=== PATIENT | male | born 1950 | race Caucasian/White ===

== ENCOUNTER 2020-02-03 23:34 | Observation (INO) ==
[2020-02-04] MEDS ORDERED: Aspirin 81 MG TAB.CHEW PO ONE (00:03)
[2020-02-04 00:22] LABS: Prothrombin Time 11.4 Seconds (9.4-12.1)
[2020-02-04 00:23] LABS: Basophils # 0.1 K/mcL (0.0-0.2); Basophils % 0.8 %; Eosinophils # 0.3 K/mcL (0.0-0.6); Eosinophils % 3.3 %; Hematocrit 39.7 % (37.5-50.1); Hemoglobin 13.9 g/dL (12.9-16.9); Immature Granulocytes % 0.2 % (0-4); Lymphocytes # 2.6 K/mcL (0.6-4.6); Mean Corpuscular Hemoglobin 30.8 pg (28.0-33.3); Mean Corpuscular Volume 87.8 fL (83.0-100.0); Monocytes # 0.9 K/mcL (0.0-1.3); Monocytes % 8.3 %; Neutrophils # 6.4 K/mcL (1.6-8.9); Platelet Count 265 K/mcL (140-400); Red Blood Count 4.52 M/mcL (4.19-5.50); Red Cell Distribution Width 12.8 % (11.5-14.5); Segmented Neutrophils % 62.4 %; White Blood Count 10.3 K/mcL (4.3-11.1)
[2020-02-04 00:24] LABS: Activated Partial Thrombo Time 56.6 Seconds (26.0-36.0)
[2020-02-04 00:31] LABS: BUN/Creatinine Ratio 15 (6-26); Blood Urea Nitrogen 14 mg/dL (8-23); Calcium 8.9 mg/dL (8.6-10.3); Carbon Dioxide 25 mEq/L (23-29); Chloride 105 mEq/L (98-107); Glucose 163 mg/dL (70-105); Osmolality,Calculated 292 (280-300); Potassium 3.1 mEq/L (3.5-5.1); Sodium 139 mEq/L (136-145); eGFR For African Americans > 60 (> 60); eGFR For Non-African Americans > 60 (> 60)
[2020-02-04 00:32] LABS: Troponin I < 0.03 ng/mL (< 0.04)
[2020-02-04] MEDS: Nitroglycerin 0.4 MG TAB.SUBL SL PRN ×3 (00:39→01:23)
[2020-02-04] MEDS ORDERED: Isovue-370 500 ML BOTTLE IVP ONE (00:46)
[2020-02-04] MEDS ORDERED: *HR* FentaNYL (PF) 100 MCG/2 ML VIAL IVP ONE (01:55)
[2020-02-04 04:17] LABS: Adenovirus Not Detected (Not Detect); Bordetella Pertussis Not Detected (Not Detect); Chlamydophila pneumoniae Not Detected (Not Detect); Coronavirus 229E Not Detected (Not Detect); Coronavirus HKU1 Not Detected (Not Detect); Coronavirus NL63 Not Detected (Not Detect); Coronavirus OC43 Not Detected (Not Detect); Human Metapneumovirus Not Detected (Not Detect); Human Rhinovirus/Enterovirus Not Detected (Not Detect); Influenza A Subtype 2009 H1 Not Detected (Not Detect); Influenza B Not Detected (Not Detect); Mycoplasma pneumoniae Not Detected (Not Detect); Parainfluenza Virus 1 Not Detected (Not Detect); Parainfluenza Virus 2 Not Detected (Not Detect); Parainfluenza Virus 3 Not Detected (Not Detect); Parainfluenza Virus 4 Not Detected (Not Detect); Respiratory Syncytial Virus Not Detected (Not Detect)
[2020-02-04] MEDS ORDERED: Perflutren Lipid Microsphere 1.3 ML in 0.9 % Sodium Chloride 8.7 ML IVP PRN (04:41)
[2020-02-04 04:58] LABS: Lipase 42 Units/L (11-82)
[2020-02-04] MEDS ORDERED: *HR* OxyCODONE Immed Rel 5 MG TABLET PO ONE (05:43)
[2020-02-04] MEDS ORDERED: *HR* HYDROcodone/Acet 5/325 mg TABLET PO PRN (05:53)
[2020-02-04] MEDS ORDERED: Naloxone 0.4 MG/ML INJ IVP PRN (05:53)
[2020-02-04] MEDS ORDERED: Acetaminophen 325 MG TABLET PO PRN (05:53)
[2020-02-04] MEDS ORDERED: Ondansetron 4 MG/2 ML VIAL IVP PRN (05:53)
[2020-02-04] MEDS ORDERED: Morphine Sulfate 2 MG/ML SYRINGE IVP PRN (06:44)
[2020-02-04] MEDS ORDERED: Regadenoson 0.4 MG/5 ML SYRINGE IVP ONE (07:11)
[2020-02-04 07:30] LABS: Chol/HDL Ratio 3.3 (0-4.9)
[2020-02-04 07:32] LABS: Albumin 3.9 g/dL (3.5-5.7); Albumin/Globulin Ratio 1.6 (1.1-2.2); Bilirubin,Direct 0.2 mg/dL (0.0-0.2); Bilirubin,Indirect 1.1 mg/dL (0.0-1.0); Bilirubin,Total 1.3 mg/dL (0.3-1.0); Globulin 2.4 g/dL (2.4-3.5); Phosphorous 2.4 mg/dL (2.7-4.5); Total Protein 6.3 g/dL (6.4-8.9)
[2020-02-04 07:35] LABS: Troponin I < 0.03 ng/mL (< 0.04)
[2020-02-04] MEDS: *HR* Heparin 5,000 UNIT/ML VIAL SQ SCH ×3 (11:26→21:14)
[2020-02-04] MEDS: Aspirin 81 MG TAB.CHEW PO SCH (11:26)
[2020-02-04] MEDS ORDERED: *HR* OxyCODONE Immed Rel 5 MG TABLET PO PRN (12:00)
[2020-02-04] MEDS ORDERED: levoFLOXacin 500 MG/100 ML 500 MG/100 ML BAG IVPB SCH (17:00)
[2020-02-04] MEDS: MethylPREDNISolone 40 MG/ML VIAL IVP SCH (23:51)
[2020-02-05] MEDS: *HR* Heparin 5,000 UNIT/ML VIAL SQ SCH (05:01)
[2020-02-05 05:14] LABS: Hemoglobin 13.2 g/dL (12.9-16.9); Mean Corpuscular HGB Conc 33.8 g/dL (31.6-35.5); Mean Corpuscular Hemoglobin 29.9 pg (28.0-33.3); Mean Corpuscular Volume 88.2 fL (83.0-100.0); Mean Platelet Volume 11.1 fL (9.4-12.4); Platelet Count 255 K/mcL (140-400); Red Blood Count 4.42 M/mcL (4.19-5.50); Red Cell Distribution Width 12.7 % (11.5-14.5); White Blood Count 11.8 K/mcL (4.3-11.1)
[2020-02-05 05:35] LABS: BUN/Creatinine Ratio 15 (6-26); Blood Urea Nitrogen 15 mg/dL (8-23); Carbon Dioxide 24 mEq/L (23-29); Chloride 104 mEq/L (98-107); Glucose 157 mg/dL (70-105); Osmolality,Calculated 284 (280-300); Potassium 4.1 mEq/L (3.5-5.1); Sodium 135 mEq/L (136-145); eGFR For African Americans > 60 (> 60); eGFR For Non-African Americans > 60 (> 60)
[2020-02-05 07:27] VITALS: BP 129/62
[2020-02-05] MEDS ORDERED: cloNIDine HCL 0.1 MG TABLET PO SCH (09:00)
[2020-02-05] MEDS ORDERED: amLODIPine 5 MG TABLET PO SCH (09:00)
[2020-02-05] MEDS ORDERED: Losartan/HCTZ 50-12.5 TABLET PO SCH (09:00)
[2020-02-05] MEDS: MethylPREDNISolone 40 MG/ML VIAL IVP SCH (09:03)
[2020-02-05] MEDS: Aspirin 81 MG TAB.CHEW PO SCH (09:03)
== END 2020-02-05 11:11 | disposition home or self-care (01) ==
LOC: EMEROOARM 23:34 → 2ANU 23:34 → SUATTDRO 02-04 04:24 → 2ANU 02-04 05:20
PROVIDERS: ADMIT Student in an Organized Health Care Education/Training Program; ATTEND Pharmacist